=== PATIENT | female | born 1965 | race Caucasian/White ===

== ENCOUNTER 2021-10-03 11:57 | Emergency (ER) | payer SELFPAY ==
[~2021-10-03] VITALS: Ht 162.6 cm; Wt 67.3 kg
[2021-10-03 12:00] VITALS: BP 105/66
[2021-10-03] MEDS ORDERED: LIDOcaine 5% patch TP STA (12:23)
[2021-10-03] MEDS ORDERED: HYDROcodone/acetaminophen 10/325mg tab PO ONE (12:25)
[2021-10-03] MEDS ORDERED: HYDR-3972 PO (12:33)
== END 2021-10-03 13:04 | disposition home or self-care (01) ==
LOC: ER 11:59
DX: M25.511 Pain in right shoulder (principal); M54.2 Cervicalgia; G43.909 Migraine, unspecified, not intractable, without status migrainosus; G89.29 Other chronic pain
CPT/HCPCS: 99284; A4565

== ENCOUNTER 2021-10-23 17:30 | Emergency (ER) | payer OTHER ==
[~2021-10-23] VITALS: Ht 162.6 cm; Wt 65.9 kg
[2021-10-23 17:54] VITALS: BP 113/76
[2021-10-23] MEDS ORDERED: HYDROcodone/acetaminophen 10/325mg tab PO ONE (19:05)
[2021-10-23] MEDS ORDERED: METH-798 PO (19:08)
[2021-10-23] MEDS ORDERED: HYDR-3972 PO (19:08)
== END 2021-10-23 19:41 | disposition home or self-care (01) ==
LOC: ER 17:31
DX: M25.511 Pain in right shoulder (principal); G89.29 Other chronic pain; M54.2 Cervicalgia; G43.909 Migraine, unspecified, not intractable, without status migrainosus; Z88.6 Allergy status to analgesic agent; Z88.8 Allergy status to other drugs, medicaments and biological substances; Z88.5 Allergy status to narcotic agent
CPT/HCPCS: 99283